=== PATIENT | female | born 2000 ===

== ENCOUNTER 2020-04-01 20:08 | Emergency (ER) | payer SELFPAY ==
[2020-04-01] MEDS ORDERED: Famotidine 20 MG TAB ONE (20:40)
[2020-04-01] MEDS ORDERED: diphenhydrAMINE 25 MG CAP ONE (20:40)
[2020-04-01] MEDS ORDERED: predniSONE 20 MG TAB ONE ×2 (20:40)
== END 2020-04-01 21:16 | disposition home or self-care (01) ==
LOC: ERS 20:08
DX: S40.262A Insect bite (nonvenomous) of left shoulder, initial encounter (principal); F90.9 Attention-deficit hyperactivity disorder, unspecified type; W57.XXXA Bitten or stung by nonvenomous insect and other nonvenomous arthropods, initial encounter
CPT/HCPCS: 99282; J7512; Q0163